=== PATIENT | female | born 1970 | race Caucasian/White ===

== ENCOUNTER 2018-12-25 23:18 | Emergency (ER) | payer OTHER ==
[~2018-12-25] VITALS: Ht 160 cm; Wt 103.6 kg
[~2018-12-25 23:18] MED LIST: DEXT1DRO7 OP; MED4DP PO; VALA500T PO
[2018-12-25 23:21] VITALS: Ht 160 cm; Wt 103.6 kg
--- NOTE | 2018-12-26 01:21 | ERD ---
ER Documentation Chief Complaint Chief Complaint L arm numbness, L facial droop X 15 hrs HPI Is a very pleasant 47-year-old female, with a left-sided facial. For 15 hours. She says she woke up with it. She denies any limb weakness. She says is only in her face. She also complains of a taste sensation that is often her mouth. She denies any other focal neurological complaints. Denies any change in mentation or any dysarthria. ROS All systems reviewed and are negative except as per history of present illness. Medications Home Meds Active Scripts Methylprednisolone* (Medrol* DOSE PACK) 4 Mg/Dose-Pack Tab.ds.pk, 4 MG PO . DIRECTED for 7 Days, PACKET Prov:FABRICE RAZA 12/26/18 valAcyclovir Hcl* (valACYclovir Hcl*) 500 Mg Tablet, 500 MG PO BID for 7 Days, TAB Prov:FABRICE RAZA 12/26/18 Dextran 70/Hypromellose/Pf (ARTIFICIAL TEARS DROPS) 1 Each Droperette, 1 EACH OP 5 TIMES DAILY, #1 Prov:ALEXANDERJUSTINFABRICE Boom 12/26/18 Allergies Allergies: Coded Allergies: No Known Allergy (Unverified , 09/24/13) PMhx/Soc History of Surgery: Yes (C/S X1,LT BREAST CYST REMOVED/ECTOPIC /BTL) Anesthesia Reaction: No Hx Neurological Disorder: No Hx Respiratory Disorders: No Hx Cardiac Disorders: No Hx Psychiatric Problems: No Hx Miscellaneous Medical Probl: No Hx Substance Use: No Hx Tobacco Use: No Physical Exam Vitals Vital Signs Date Temp Pulse Resp B/P (MAP) Pulse Ox O2 O2 Flow FiO2 Time Delivery Rate 12/25/18 97.4 81 18 162/87 97 23:21 (112) Physical Exam Const: No acute distress Head: Atraumatic Eyes: Normal Conjunctiva ENT: Normal External Ears, Nose and Mouth. Neck: Full range of motion. No meningismus. Resp: Clear to auscultation bilaterally Cardio: Regular rate and rhythm, no murmurs Abd: Soft, non tender, non distended. Normal bowel sounds Skin: No petechiae or rashes Back: No midline or flank tenderness Ext: No cyanosis, or edema Neur: Awake and alert. Muscle weakness noted on left side of the face with resistance to closure of the eyelid. 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 Discharged home Medrol Dosepak, valacyclovir, artificial tears. CT head was negative. She is to follow-up with her primary care physician Dr. Luevano tomorrow. Departure Diagnosis: Primary Impression: Damon's palsy Condition: Stable Patient Instructions: Damon's Palsy Referrals: DIANELYS LUEVANO MD (PCP) FABRICE RAZA Dec 26, 2018 01:21
[2018-12-26 02:25] VITALS: BP 151/81; PULSE 79; RESP 18
== END 2018-12-26 02:26 | disposition home or self-care (01) ==
LOC: E/R 23:18
DX: G51.0 Bell's palsy (principal)
CPT/HCPCS: 70450